=== PATIENT | female | born 1985 | race Caucasian/White ===

== ENCOUNTER 2018-01-20 13:49 | Emergency (ER) | payer BC ==
--- NOTE | 2018-01-20 14:33 | OBHP ---
Datetime: 01/20/2018 14:27 IP Adm Impression: , intrauterine Admit Comment, IP Provider: 32 yo with IUP at 34+2 weeks, sent by private physician for PIH lab s +FM - LOF - VB - CTX denies CARTER CP SOB N/V, RUQ pain visual complaints primigravida LMP may, denies STIs, normal paps no medical history family history with HTN denies surgeries denies smoking drinking and drug use taking vitamins a/p: 32 yo PIH eval no currently signs or symptoms of preeclampsia labs ordered, will continue and maternal monitoring EGA AdmitDate IP: 34.2 Vital Signs Provider: Reviewed; Within Normal Limits IP Chief Complaint: Signs/Symptoms Gestational HTN FHR Category Provider Fetus A: Category I
[2018-01-20 14:49] LABS: HEMOGLOBIN 11.3 g/dL (11.0-16.0); MEAN CELL VOLUME 73.5 fL (81.0-99.0); MEAN CORPUSCULAR HEMOGLOBIN 23.5 pg (27.0-31.0); MEAN PLATELET VOLUME 10.8 fL (7.2-11.7); RBC 4.8 Mil/uL (3.80-5.20); RED CELL DISTRIBUTION WIDTH 15.5 % (11.5-14.5); WHITE BLOOD COUNT 13.5 K/uL (4.8-10.8)
[2018-01-20 15:00] LABS: PROTHROMBIN TIME 10.8 SECONDS (9.7-12.2)
[2018-01-20 15:01] LABS: ALBUMIN 3.6 g/dL (3.5-5.0); ALT/SGPT 25 U/L (9-52); AST/SGOT 24 U/L (14-36); BLOOD UREA NITROGEN 9 mg/dL (7-17); CALCIUM 8.8 mg/dl (8.6-10.4); GFR NON-AFRICAN AMERICAN > 60; SQUAMOUS EPITHIAL 7 /hpf (0-5); URIC ACID 3.3 mg/dL (2.2-7.5); URINE BACTERIA OCC (<OCC); URINE BILIRUBIN NEGATIVE (NEGATIVE); URINE BLOOD 1+ (NEGATIVE); URINE CLARITY Clear (Clear); URINE COLOR Yellow (YELLOW); URINE GLUCOSE (UA) NORMAL (Normal); URINE LEUKOCYTE ESTERASE 3+ Leu/uL (Negative); URINE PROTEIN NEGATIVE (NEGATIVE); URINE UROBILINOGEN NORMAL mg/dL (0.2-1.0)
--- NOTE | 2018-01-20 16:09 | OBHP ---
Datetime: 01/20/2018 14:27 Admit Comment, IP Provider: 32 yo with IUP at 34+2 weeks, sent by private physician for PIH lab s +FM - LOF - VB - CTX denies CARTER CP SOB N/V, RUQ pain visual complaints primigravida LMP may, denies STIs, normal paps no medical history family history with HTN denies surgeries denies smoking drinking and drug use taking vitamins a/p: 32 yo PIH eval no currently signs or symptoms of preeclampsia labs ordered, will continue and maternal monitoring addendum: labs reviewed, normal Bps, 130s/90-100s recommend home BP checks, rx for machine given pt to comeplete home 24 hour urine protein follow up in office discussed with Dr. Bermudez
[2018-01-20 20:44] VITALS: BP 130/97; PULSE 80; RESP 20; TEMP 97.4
== END 2018-01-20 16:27 | disposition home or self-care (01) ==
LOC: C.EROB 13:49
DX: O16.3 Unspecified maternal hypertension, third trimester (principal); Z3A.34 34 weeks gestation of pregnancy

== ENCOUNTER 2018-02-13 11:58 | Inpatient (IN) | payer BC ==
[2018-02-13] MEDS ORDERED: Lactated Ringer's 1,000 ML IV ONE (12:15)
[2018-02-13 13:20] LABS: BASO # 0.1 K/uL (0.0-0.2); BASO % 0.6 % (0.0-2.0); EOS % 0.2 % (0.0-4.0); HEMOGLOBIN 11.3 g/dL (11.0-16.0); LYMPH # 3.1 K/uL (1.0-4.3); LYMPH % 23.6 % (20.0-40.0); MEAN CELL VOLUME 72.4 fL (81.0-99.0); MEAN CORPUSCULAR HGB CONC 31.8 g/dL (33.0-37.0); MEAN PLATELET VOLUME 10.7 fL (7.2-11.7); MONO % 7.2 % (0.0-10.0); NEUT # 9.1 K/uL (1.8-7.0); NEUT % 68.4 % (50.0-75.0); RBC 4.91 Mil/uL (3.80-5.20); RED CELL DISTRIBUTION WIDTH 16.9 % (11.5-14.5); WHITE BLOOD COUNT 13.3 K/uL (4.8-10.8)
[2018-02-13 13:23] LABS: SQUAMOUS EPITHIAL 30 /hpf (0-5); URINE BACTERIA OCC (<OCC); URINE BILIRUBIN NEGATIVE (NEGATIVE); URINE CLARITY Hazy (Clear); URINE COLOR Yellow (YELLOW); URINE GLUCOSE (UA) NORMAL (Normal); URINE LEUKOCYTE ESTERASE 3+ Leu/uL (Negative); URINE PROTEIN 1+ mg/dL (NEGATIVE); URINE UROBILINOGEN NORMAL mg/dL (0.2-1.0)
[2018-02-13 13:24] LABS: URINE BLOOD TRACE (NEGATIVE)
[2018-02-13 13:27] LABS: PROTHROMBIN TIME 10.5 SECONDS (9.7-12.2)
[2018-02-13] MEDS: Lactated Ringer's 1,000 ML IV SCH (13:31)
[2018-02-13 13:41] LABS: ALBUMIN 3.6 g/dL (3.5-5.0); ALT/SGPT 31 U/L (9-52); AST/SGOT 32 U/L (14-36); BLOOD UREA NITROGEN 8 mg/dL (7-17); CALCIUM 8.4 mg/dl (8.6-10.4); GFR NON-AFRICAN AMERICAN > 60
[2018-02-13 13:49] LABS: CREATININE, RANDOM URINE 152.2 mg/dL
[2018-02-13 14:14] LABS: HEPATITIS B SURFACE AG Negative (NEGATIVE)
[2018-02-13] MEDS ORDERED: Magnesium Sulfate 6 GM in Dextrose 5% In Water 250 ML IVPB ONE (14:49)
[2018-02-13] MEDS ORDERED: Magnesium Sulfate 20 gm 20,000 MG/500 ML BAG IV ONE (14:57)
[2018-02-13] MEDS ORDERED: Magnesium Sulfate 20 gm 20 GM/500 ML BAG IV SCH (15:00)
[2018-02-13] MEDS ORDERED: Penicillin G Potassium 5 MU in Dextrose 5% In Water 50 ML IV ONE (15:26)
--- NOTE | 2018-02-13 16:18 | OBHP ---
Datetime: 02/13/2018 15:47 IP Adm Impression: Term, intrauterine ; No Active Labor IP Admit Plan: Admit to unit; Initiate labor induction protocol Admit Comment, IP Provider: SUBJECTIVE: HPI: A 32 yo F G1PO at 37 weeks and 5 days with no significant PMHx presented to the [facility] at the recomm endation of [facility] due to gestational hypertension, Oligohydramnios (2.4) and BPP 6/8 and for recommende d delivery. Patient states that her blood pressure increased over the last 3-4 weeks. Increased BP wa s not associated with pain, headaches, or vision changes. Patient confirms movement and no leak age of fluid. Patient denies vaginal bleeding, contractions, nausea, vomiting, fever, urinary changes , or other associated symptoms. No other associated symptoms present. PMHx - as stated in HPI SurgHx - denies FamHx - father has HTN SocialHx - lives with , denies current or prior tobacco, alcohol, or drug use. Allergies - NKDA Meds - PNV GynHx - ZURDO: March 01, 2017 via 1st trimester US care: Dr. Bermudez, last appointment 1 week ago, last [facility] US today ObHx: no prior births Menarche: age 12, 5 days long, 5 pads during first few days Hx STI, fibroids, cysts denied OBJECTIVE: BP persistently elevated with BP max 148/110, Urine protein/Cr ratio is 0.2 BPP was 6/8. GBS posit brandon per [facility] records. UA with 12 WBC, 3+ leukocyte esterase ASSESSEMENT: A 32 yo F at 37 weeks and 5 days presenting to the [facility] at recommendation by [facility] for delivery with gestational hypertension and oligohydramnio. Labs reviewed and Dx of Preeclampsia made/Asymptomatic PLAN: Case discussed with Dr. Bermudez and she request Prepare for induction of labor with probable caesarean delivery Mg sulfate 6 gram bolus, 2 grams every hour Labetolol 300 mg PO once PCN prophylaxis for GBS, treatment for UTI after delivery Cervidil Dr. Bermudez will see and examined patient later this evening and make further decision Will keep patient NPO Patient was seen, examined, and plan reviewed with Dr. Ramón Childs, DO, PGY-1 Pelvic Type - PN: Adequate Extremities - PN: Normal Abdomen - PN: Normal Back - PN: Normal Breast - PN: Not Done Lungs - PN: Normal Heart - PN: Normal Thyroid - PN: Normal Neurologic - PN: Normal HEENT - PN: Normal General - PN: Normal Presentation-Admit: Vertex FHR - Baseline A Provider: 150 Membranes, Provider: Intact Contraction Comments Provider: none Gestation - Est Wks by US: 37.5 IP Hx Assessment: The History has been Updated EGA AdmitDate IP: 37.5 Vital Signs Provider: Reviewed Vital Signs Provider Details: BP elevated with BP max around 160/110 IP Indication for Induction: Gest. HTN/PreEclampsia/Eclampsia; Oligohydramnios IP Chief Complaint: Signs/Symptoms Gestational HTN; evaluation NICHD Variability Prov Fetus A: Moderate 6-25bpm NICHD Accel Fetus A IP Provider: 10X10 NICHD Decel Fetus A IP Provider: None Dilatation, Provider: 0 Effacement, Provider: firm Station, Provider: -3 Genitourinary Exam: Normal DTRs - PN: Normal
--- NOTE | 2018-02-13 16:34 | OBADHP ---
Datetime: 02/13/2018 15:47 Admit Comment, IP Provider: SUBJECTIVE: HPI: A 32 yo F G1PO at 37 weeks and 5 days with no significant PMHx presented to the [facility] at the recomm endation of [facility] due to gestational hypertension, Oligohydramnios (2.4) and BPP 6/8 and for recommende d delivery. Patient states that her blood pressure increased over the last 3-4 weeks. Increased BP wa s not associated with pain, headaches, or vision changes. Patient confirms movement and no leak age of fluid. Patient denies vaginal bleeding, contractions, nausea, vomiting, fever, urinary changes , or other associated symptoms. No other associated symptoms present. PMHx - as stated in HPI SurgHx - denies FamHx - father has HTN SocialHx - lives with , denies current or prior tobacco, alcohol, or drug use. Allergies - NKDA Meds - PNV GynHx - ZURDO: March 01, 2017 via 1st trimester US care: Dr. Bermudez, last appointment 1 week ago, last [facility] US today ObHx: no prior births Menarche: age 12, 5 days long, 5 pads during first few days Hx STI, fibroids, cysts denied OBJECTIVE: BP persistently elevated with BP max 148/110, Urine protein/Cr ratio is 0.2 BPP was 6/8. GBS posit brandon per [facility] records. UA with 12 WBC, 3+ leukocyte esterase ASSESSEMENT: A 32 yo F at 37 weeks and 5 days presenting to the [facility] at recommendation by [facility] for delivery with gestational hypertension and oligohydramnio. Labs reviewed and Dx of Preeclampsia made/Asymptomatic PLAN: Case discussed with Dr. Bermudez and she request Prepare for induction of labor with probable caesarean delivery Mg sulfate 6 gram bolus, 2 grams every hour Labetolol 300 mg PO once PCN prophylaxis for GBS, treatment for UTI after delivery Cervidil Dr. Bermudez will see and examined patient later this evening and make further decision Will keep patient NPO Patient was seen, examined, and plan reviewed with Dr. Ramón Childs, DO, PGY-1 Pelvic Type - PN: Adequate Extremities - PN: Normal Abdomen - PN: Normal Back - PN: Normal Breast - PN: Not Done Lungs - PN: Normal Heart - PN: Normal Thyroid - PN: Normal Neurologic - PN: Normal HEENT - PN: Normal General - PN: Normal Presentation-Admit: Vertex FHR - Baseline A Provider: 150 Membranes, Provider: Intact Contraction Comments Provider: none Gestation - Est Wks by US: 37.5 IP Hx Assessment: The History has been Updated Vital Signs Provider: Reviewed Vital Signs Provider Details: BP elevated with BP max around 160/110 IP Chief Complaint: Signs/Symptoms Gestational HTN; evaluation NICHD Variability Prov Fetus A: Moderate 6-25bpm NICHD Accel Fetus A IP Provider: 10X10 NICHD Decel Fetus A IP Provider: None Dilatation, Provider: 0 Effacement, Provider: firm Station, Provider: -3 Genitourinary Exam: Normal DTRs - PN: Normal EGA AdmitDate IP: 37.5 IP Adm Impression: Term, intrauterine ; No Active Labor; Intact Membranes IP Admit Plan: Admit to unit; Initiate labor induction protocol Datetime: 01/20/2018 14:27 FHR Category Provider Fetus A: Category I
[2018-02-13] MEDS ORDERED: Penicillin G 5 Million Unit Vial IVPB ONE (17:21)
[2018-02-13] MEDS ORDERED: Sodium Citrate/Citric Acid 15 ml Sol PO ONE (18:01)
[2018-02-13] MEDS ORDERED: Sodium Citrate/Citric Acid 15 ml Sol ONE (18:04)
[2018-02-13] MEDS ORDERED: cefOXitin IV 2 gm in Dextrose 2 GM/50 ML BAG IVPB ONE ×2 (18:05→19:00)
--- NOTE | 2018-02-13 19:22 | OBPN ---
Datetime: 02/13/2018 15:47 IP Progress Impression: Reassuring heart rate; Reactive non-stress test IP Informed Consent Obtain: Vaginal Delivery IP Procedures: Sterile Vag Exam IP Progress Plan: Induction Membranes, Provider: Intact Contraction Comments Provider: none FHR - Baseline A Provider: 150 Gestation - Est Wks by US: 37.5 Presentation-Admit: Vertex IP Progress Note Comment: Pt seen and examined Pt received Magnesium Sulfate bolus and maintenance dose FHT's reassuring Cervicil inserted as per Dr. Bermudez request Continue present Management Vital Signs Provider: Reviewed Vital Signs Provider Details: BP elevated with BP max around 160/110 NICHD Accel Fetus A IP Provider: 10X10 NICHD Variability Prov Fetus A: Moderate 6-25bpm Dilatation, Provider: 0 Effacement, Provider: firm Station, Provider: -3 NICHD Decel Fetus A IP Provider: None Datetime: 01/20/2018 14:27 FHR Category Provider Fetus A: Category I
[2018-02-13] MEDS ORDERED: Bupivacaine HCl 15 mg/2 ml Spinal Inj ONE (19:44)
[2018-02-13] MEDS ORDERED: Morphine 1 mg/ml preservative-free Inj(Duramorph) ONE (19:45)
[2018-02-13] MEDS ORDERED: ePHEDrine 50 mg/ml Inj ONE (19:45)
[2018-02-13] MEDS ORDERED: Penicillin G Potassium 2.5 MU in Dextrose 5% In Water 50 ML IV SCH (20:00)
[2018-02-13] MEDS ORDERED: Oxytocin 10 Units/ml Inj ONE (20:23)
[2018-02-13] MEDS ORDERED: Oxytocin 20 units in LR 2,000 ML IV ONE (20:23)
[2018-02-13] MEDS ORDERED: Oxycodone/Acetaminophen 5/325 mg Tab PO PRN ×2 (21:25→21:26)
[2018-02-14 04:07] LABS: MEAN CELL VOLUME 72.6 fL (81.0-99.0); MEAN CORPUSCULAR HEMOGLOBIN 22.8 pg (27.0-31.0); MEAN CORPUSCULAR HGB CONC 31.4 g/dL (33.0-37.0); MEAN PLATELET VOLUME 10.7 fL (7.2-11.7); RBC 4.84 Mil/uL (3.80-5.20); RED CELL DISTRIBUTION WIDTH 16.8 % (11.5-14.5); WHITE BLOOD COUNT 25.7 K/uL (4.8-10.8)
[2018-02-14 04:26] LABS: ALBUMIN 3.1 g/dL (3.5-5.0); ALT/SGPT 38 U/L (9-52); AST/SGOT 38 U/L (14-36); BLOOD UREA NITROGEN 7 mg/dL (7-17); CALCIUM 6.9 mg/dl (8.6-10.4); GFR NON-AFRICAN AMERICAN > 60
[2018-02-14] MEDS ORDERED: Magnesium Sulfate 20 gm 20,000 MG/500 ML BAG IV ONE (06:10)
[2018-02-14] MEDS ORDERED: Magnesium Sulfate 20 gm 20 GM/500 ML BAG IV SCH (08:00)
[2018-02-14] MEDS ORDERED: Prenatal Multivit/Folic Acid/Iron Tab PO SCH (10:00)
[2018-02-14] MEDS: Simethicone 80 mg Chewtab PO SCH ×4 (10:25→22:07)
[2018-02-14] MEDS: Prenatal Multivit/Folic Acid/Iron Tab PO SCH (10:25)
[2018-02-14 10:48] LABS: HEMOGLOBIN 9.9 g/dL (11.0-16.0); MEAN CELL VOLUME 72.6 fL (81.0-99.0); MEAN CORPUSCULAR HEMOGLOBIN 22.9 pg (27.0-31.0); MEAN CORPUSCULAR HGB CONC 31.6 g/dL (33.0-37.0); MEAN PLATELET VOLUME 10.3 fL (7.2-11.7); RBC 4.33 Mil/uL (3.80-5.20); WHITE BLOOD COUNT 24.9 K/uL (4.8-10.8)
[2018-02-14 10:57] LABS: SQUAMOUS EPITHIAL < 1 /hpf (0-5); URINE BILIRUBIN NEGATIVE (NEGATIVE); URINE BLOOD 3+ (NEGATIVE); URINE CLARITY Hazy (Clear); URINE COLOR Yellow (YELLOW); URINE GLUCOSE (UA) NORMAL (Normal); URINE HYALINE CAST >20 /lpf (0-2); URINE LEUKOCYTE ESTERASE 1+ Leu/uL (Negative); URINE PROTEIN NEGATIVE (NEGATIVE); URINE UROBILINOGEN NORMAL mg/dL (0.2-1.0)
[2018-02-14 11:01] LABS: PROTHROMBIN TIME 10.4 SECONDS (9.7-12.2)
[2018-02-14 11:08] LABS: ALB/GLOB RATIO 0.9 (1.0-2.1); ALBUMIN 2.9 g/dL (3.5-5.0); ALT/SGPT 41 U/L (9-52); AST/SGOT 40 U/L (14-36); BLOOD UREA NITROGEN 7 mg/dL (7-17); CALCIUM 6.6 mg/dl (8.6-10.4); CREATININE, RANDOM URINE 133.2 mg/dL; GFR NON-AFRICAN AMERICAN > 60; URIC ACID 3.6 mg/dL (2.2-7.5)
[2018-02-14] MEDS: Lactated Ringer's 1,000 ML IV SCH (13:15)
[2018-02-14] MEDS: Oxycodone/Acetaminophen 5/325 mg Tab PO PRN (19:40)
[2018-02-14] MEDS ORDERED: Oxycodone/Acetaminophen 5/325 mg Tab ONE (19:42)
[2018-02-14] MEDS ORDERED: Bisacodyl 5mg EC Tab PO ONE (21:27)
[2018-02-15] MEDS: Oxycodone/Acetaminophen 5/325 mg Tab PO PRN (03:12)
[2018-02-15 07:30] LABS: BASO # 0.1 K/uL (0.0-0.2); BASO % 0.2 % (0.0-2.0); LYMPH # 2.5 K/uL (1.0-4.3); LYMPH % 9.9 % (20.0-40.0); MEAN CELL VOLUME 72.2 fL (81.0-99.0); MEAN CORPUSCULAR HEMOGLOBIN 23.4 pg (27.0-31.0); MEAN CORPUSCULAR HGB CONC 32.5 g/dL (33.0-37.0); MEAN PLATELET VOLUME 10.3 fL (7.2-11.7); MONO # 1.3 K/uL (0.0-0.8); MONO % 5.1 % (0.0-10.0); NEUT # 21.3 K/uL (1.8-7.0); NEUT % 84.8 % (50.0-75.0); PLATELET COUNT 281 K/uL (130-400); RBC 4.25 Mil/uL (3.80-5.20); WHITE BLOOD COUNT 25.1 K/uL (4.8-10.8)
[2018-02-15 07:43] LABS: INR 0.9; PROTHROMBIN TIME 10.2 SECONDS (9.7-12.2)
[2018-02-15 07:58] LABS: ANISOCYTOSIS SLIGHT; BANDS 4 % (0-2); HYPOCHROMIC SLIGHT; LARGE PLATELETS PRESENT; LYMPHOCYTE 10 % (20-40); MONOCYTE 6 % (0-10); NEUTROPHIL 80 % (50-75); PLATELET ESTIMATE NORMAL (NORMAL); TOTAL CELLS COUNTED 100
[2018-02-15 08:14] LABS: URIC ACID 4.3 mg/dL (2.2-7.5)
[2018-02-15 08:19] LABS: SQUAMOUS EPITHIAL 1 /hpf (0-5); URINE BILIRUBIN NEGATIVE (NEGATIVE); URINE BLOOD 3+ (NEGATIVE); URINE CLARITY Clear (Clear); URINE COLOR Yellow (YELLOW); URINE GLUCOSE (UA) NORMAL (Normal); URINE LEUKOCYTE ESTERASE NEG Leu/uL (Negative); URINE PROTEIN NEGATIVE (NEGATIVE); URINE UROBILINOGEN NORMAL mg/dL (0.2-1.0)
[2018-02-15 09:09] LABS: ALT/SGPT 37 U/L (9-52); AST/SGOT 42 U/L (14-36)
[2018-02-15] MEDS: Prenatal Multivit/Folic Acid/Iron Tab PO SCH (09:36)
[2018-02-15] MEDS: Simethicone 80 mg Chewtab PO SCH ×4 (09:38→22:02)
[2018-02-15 12:23] LABS: ALBUMIN 3.2 g/dL (3.5-5.0); ALT/SGPT 36 U/L (9-52); AST/SGOT 75 U/L (14-36); BLOOD UREA NITROGEN 9 mg/dL (7-17); CALCIUM 7.9 mg/dl (8.6-10.4); GFR NON-AFRICAN AMERICAN > 60
[2018-02-16] MEDS: Oxycodone/Acetaminophen 5/325 mg Tab PO PRN ×3 (00:59→14:25)
[2018-02-16 07:54] VITALS: PULSE 94; O2SAT 100
[2018-02-16] MEDS: Prenatal Multivit/Folic Acid/Iron Tab PO SCH (09:16)
[2018-02-16] MEDS: Simethicone 80 mg Chewtab PO SCH ×2 (09:18→13:04)
[2018-02-16] MEDS ORDERED: Influenza Vaccine 60 mcg/0.5 mL SYR (4YR UP) IM ONE (10:00)
--- NOTE | 2018-02-16 13:39 | OBDCSUM ---
Datetime: 02/16/2018 12:12 Discharged to, Provider: Home Follow up at, Provider: Dr Bermudez Disch Instr Activity: Normal activity Disch Instr Diet: Regular Discharge Diet restrict Prov: none Disch Referrals: None Disch Activity Restrictions: No sexual activity; Nothing in vagina - Citrus, tampons, douche Discharge Comment, Provider: D/W Dr Bermudez, pt cleared for d/c home with f/u in office 02/18
[2018-02-16 18:52] VITALS: BP 133/86; RESP 18; TEMP 97.9
--- NOTE | 2018-02-17 08:57 | OP ---
PROCEDURE DATE: 02/13/2018 PREOPERATIVE DIAGNOSIS: A 32-year-old female with gestational hypertension with superimposed preeclampsia with a Category II tracing POSTOPERATIVE DIAGNOSIS: A 32-year-old female with gestational hypertension with superimposed preeclampsia with a category II tracing. PROCEDURE: Primary low transverse section via Pfannenstiel. SURGEON: Ai Bermudez MD NEIGHBORHOOD COORDINATOR: Todd Jones MD TYPE OF ANESTHESIA: Spinal. COMPLICATION: None. ESTIMATED BLOOD LOSS: 500 mL. FLUIDS: 1500 mL of LR. URINE OUTPUT: 300 mL of clear urine at the end of the procedure. INDICATION: A 32-year-old female, 1, para 0, at 37 weeks and 1 day with gestational hypertension and superimposed preeclampsia, oligohydramnios, and a category II tracing. FINDINGS: A male infant, cephalic presentation. A sample tailor was present at the time of the delivery. score was 9 and 9. Normal uterus, tubes, and ovaries. DESCRIPTION OF PROCEDURE: The patient was taken to the operating room where anesthesia was found to be adequate. She was then prepped and draped in normal sterile fashion in a dorsal supine position with a leftward tilt. A Pfannenstiel incision was made with a scalpel and carried to the underlying layers of fascia. With the Bovie, the fascial incision was incised in the midline. The incision was extended laterally with a Tapia scissors. The superior aspect of the fascial incision was then grasped with the Joe clamps, elevated, and the underlying rectus muscle was dissected off bluntly. Attention was then turned to the inferior aspect of this incision, which in a similar fashion was grasped, tented up with the Joe clamps, and the rectus muscle was dissected off bluntly. The rectus muscle was then in the midline, and peritoneum was identified, tented up, and entered sharply with the Metzenbaum scissors. The peritoneal incision was extended superiorly and inferiorly with good visualization of the bladder. The bladder blade was then inserted, and the vesicouterine peritoneum was identified, grasped with a pickups, entered sharply with the Metzenbaum scissor. The incision was then extended laterally, and the bladder flap was created digitally. The bladder blade was then reinserted, and the low uterine segment was incised in a transverse fashion with the scalpel. The uterine incision was then extended laterally with the bandage scissors. The bladder blade was then removed, and the 's head was delivered atraumatically. The nose and mouth were suctioned, and the cord was clamped was cut. The infant was handed off to the awaiting the sample tailor, and cord gasses were sent. The placenta was then removed manually, and the uterus was exteriorized and cleaned of all clot and debris. The uterine incision was repaired with 1-0 Vicryl in a running locking fashion. A second layer of the sutures which was 1-0 Monocryl was used to obtain excellent hemostasis. The bladder flap was reapproximated with 3-0 chromic in a running stitch, and the uterus was returned to the abdominal cavity. The gutters were all cleaned of clots. The peritoneum was reapproximated with 3-0 chromic. The fascia was reapproximated with 0 Vicryl in a running fashion. The skin was closed with 3-0 Monocryl. The patient tolerated the procedure well. Sponge, lap, and needle counts were correct x2. A 2 g of cefotetan was given at the cord clamps, and the patient was then taken to the recovery room in stable condition. Ai Bermudez MD
== END 2018-02-16 14:52 | disposition home or self-care (01) | DRG 787 ==
LOC: C.EROB 11:58 → C.4D 12:19 → C.4M 02-14 21:19
PROVIDERS: ADMIT Obstetrics & Gynecology; ATTEND Obstetrics & Gynecology
PROC: 10D00Z1 Extraction of Products of Conception, Low, Open Approach (ICD-10-PCS; principal; 2018-02-13)
DX: O14.94 Unspecified pre-eclampsia, complicating childbirth (principal); O41.03X0 Oligohydramnios, third trimester, not applicable or unspecified; O99.824 Streptococcus B carrier state complicating childbirth; Z3A.37 37 weeks gestation of pregnancy; Z37.0 Single live birth